=== PATIENT | female | born 1985 | race Caucasian/White ===

== ENCOUNTER 2018-08-24 21:07 | Emergency (ER) | payer SELFPAY ==
--- NOTE | 2018-08-24 21:18 | EDPHYS ---
Physician Documentation [facility] Name: Mi Duval Age: 33 yrs Sex: Female : 1985 Arrival Date: 08/24/2018 Time: 21:11 Bed 30 Private MD: Shaheen Mccallum ED Physician Guy Amaya HPI: 08/24 21:17 This 33 yrs old Female presents to ER via Unassigned with complaints of Burn, kb foot. 21:17 The patient presents with a burn as a result of hot water, while cooking, at home, is kb located on the dorsum of left foot. Onset: The symptoms/episode began/occurred 3 hour(s) ago. Burn type and severity: 2nd degree: of the dorsum of left foot. Associated signs and symptoms: none. The patient did not suffer any apparent inhalation injury, The patient had no loss of consciousness. The patient has not experienced similar symptoms in the past. The patient has not recently seen a physician. 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 Blistered immediately and one large blister popped. . 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 - Social history:: Smoking status: Patient uses tobacco products, smokes one-half pack cigarettes per day. - Ebola Screening: : Patient negative for fever greater than or equal to 101.5 degrees Fahrenheit, and additional compatible Ebola Virus Disease symptoms. ROS: 21:16 Constitutional: Negative for fever, chills, and weight loss, Cardiovascular: Negative kb for chest pain, palpitations, and edema, Respiratory: Negative for shortness of breath, cough, wheezing, and pleuritic chest pain, Abdomen/GI: Negative for abdominal pain, nausea, vomiting, diarrhea, and constipation, MS/Extremity: Negative for injury and deformity, Neuro: Negative for headache, weakness, numbness, tingling, and seizure. 21:16 Skin: Positive for burn. Exam: 21:15 Constitutional: This is a well developed, well nourished patient who is awake, alert, kb and in no acute distress. Head/Face: Normocephalic, atraumatic. Chest/axilla: Normal chest wall appearance and motion. Nontender with no deformity. No lesions are appreciated. Cardiovascular: Regular rate and rhythm with a normal S1 and S2. No gallops, murmurs, or rubs. Normal PMI, no JVD. No pulse deficits. Respiratory: Lungs have equal breath sounds bilaterally, clear to auscultation and percussion. No rales, rhonchi or wheezes noted. No increased work of breathing, no retractions or nasal flaring. Abdomen/GI: Soft, non-tender, with normal bowel sounds. No distension or tympany. No guarding or rebound. No evidence of tenderness throughout. Back: No spinal tenderness. No costovertebral tenderness. Full range of motion. MS/ Extremity: Pulses equal, no cyanosis. Neurovascular intact. Full, normal range of motion. Neuro: Awake and alert, GCS 15, oriented to person, place, time, and situation. Cranial nerves II-XII grossly intact. Motor strength 5/5 in all extremities. Sensory grossly intact. Cerebellar exam normal. Normal gait. 21:15 Skin: injury, burn(s), 2nd degree burn injury covers approximately 0.5% of the total body surface area, and is located on the dorsum of left foot. Vital Signs: 21:20 BP 105 / 51; Pulse 69; Resp 16 S; Temp 98.8(O); Pulse Ox 98% on R/A; Weight 81.65 kg jd3 (R); Height 5 ft. 7 in. (170.18 cm) (R); Pain 7/10; 21:42 BP 103 / 68; Pulse 62; Resp 17; Pulse Ox 99% ; rr5 21:20 Body Mass Index 28.19 (81.65 kg, 170.18 cm) jd3 MDM: 21:15 Patient medically screened. kb 21:15 Data reviewed: vital signs, nurses notes. Data interpreted: Pulse oximetry: on room air kb is 100 %. Interpretation: normal. Counseling: I had a detailed discussion with the patient and/or guardian regarding: the historical points, exam findings, and any diagnostic results supporting the discharge/admit diagnosis, the need for outpatient follow up, a family practitioner, to return to the emergency department if symptoms worsen or persist or if there are any questions or concerns that arise at home. 08/24 21:15 Order name: Wound Care; Complete Time: 21:42 kb Administered Medications: 21:41 Drug: Silvadene Cream 1 % 1 application {Note: left foot.} Route: Topical; Site: wound; rr5 Disposition: 08/25 07:46 Co-signature as Attending Physician, Guy Amaya MD I agree with the assessment and kalr plan of care. Disposition: 08/24/18 21:18 Discharged to Home. Impression: Burn of second degree of left foot. - Condition is Stable. - Discharge Instructions: Burn Care, [id number], Second-Degree Burn. - Medication Reconciliation Form, Thank You Letter, Antibiotic Education, Prescription Opioid Use form. - Follow up: Emergency Department; When: As needed; Reason: Worsening of condition. Follow up: Private Physician; When: 2 - 3 days; Reason: Recheck today's complaints, Continuance of care, Re-evaluation by your physician. Signatures: Keena Kim, JONG-C BAIT TIER-Guy Mosher MD MD cha Davies, Jonathon, RN RN jd3 Jeremi Li RN RN rr5 Corrections: (The following items were deleted from the chart) 08/24 21:50 21:18 08/24/2018 21:18 Discharged to Home. Impression: Burn of second degree of left rr5 foot. Condition is Stable. Forms are Medication Reconciliation Form, Thank You Letter, Antibiotic Education, Prescription Opioid Use. Follow up: Emergency Department; When: As needed; Reason: Worsening of condition. Follow up: Private Physician; When: 2 - 3 days; Reason: Recheck today's complaints, Continuance of care, Re-evaluation by your physician. kb
[2018-08-24] MEDS ORDERED: SILVER SULFADIAZINE 1% 25 GM TOP ONE (21:31)
--- NOTE | 2018-08-24 21:50 | ER ---
Nurse's Notes [facility] Name: Mi Duval Age: 33 yrs Sex: Female : 1985 Arrival Date: 08/24/2018 Time: 21:11 Bed 30 Private MD: Shaheen Mccallum Diagnosis: Burn of second degree of left foot Presentation: 08/24 21:19 Presenting complaint: Patient states: "I dropped a pot of boiling potatoes on my left jd3 foot.". Transition of care: patient was not received from another setting of care. Onset of symptoms was August 24, 2018. Risk Assessment: Do you want to hurt yourself or someone else? Patient reports no desire to harm self or others. Initial Sepsis Screen: Does the patient meet any 2 criteria? No. Patient's initial sepsis screen is negative. Does the patient have a suspected source of infection? No. Patient's initial sepsis screen is negative. Care prior to arrival: None. 21:19 Method Of Arrival: Ambulatory [facility] 21:19 Acuity: CAITLYN 4 jd3 Triage Assessment: 21:20 Injury Description: Burn was sustained less than 30 minutes ago. Patient sustained rr5 second-degree burn(s) to left foot. 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 - Social history:: Smoking status: Patient uses tobacco products, smokes one-half pack cigarettes per day. - Ebola Screening: : Patient negative for fever greater than or equal to 101.5 degrees Fahrenheit, and additional compatible Ebola Virus Disease symptoms. Screenin:48 Abuse screen: Denies threats or abuse. Denies injuries from another. Nutritional rr5 screening: No deficits noted. Tuberculosis screening: No symptoms or risk factors identified. Fall Risk None identified. Assessment: 21:20 General: Appears in no apparent distress. uncomfortable, Behavior is calm, cooperative, rr5 appropriate for age. Pain: Complains of pain in left foot Pain does not radiate. Pain currently is 7 out of 10 on a pain scale. Quality of pain is described as aching, Pain began suddenly, Is intermittent. 21:20 Neuro: Level of Consciousness is awake, alert, obeys commands, Oriented to person, rr5 place, time, situation. Cardiovascular: Capillary refill < 3 seconds Patient's skin is warm and dry. Respiratory: Airway is patent Respiratory effort is even, unlabored, Respiratory pattern is regular, symmetrical. GI: No signs and/or symptoms were reported involving the gastrointestinal system. : No signs and/or symptoms were reported regarding the genitourinary system. EENT: No signs and/or symptoms were reported regarding the EENT system. Derm: blisters at left foot. Musculoskeletal: No signs and/or symptoms reported regarding the musculoskeletal system. 21:46 Reassessment: Patient appears in no apparent distress at this time. Patient and/or rr5 family updated on plan of care and expected duration. Pain level reassessed. discharge instruction given and explained without complaints made. Patient states feeling better. Patient states symptoms have improved. Vital Signs: 21:20 BP 105 / 51; Pulse 69; Resp 16 S; Temp 98.8(O); Pulse Ox 98% on R/A; Weight 81.65 kg jd3 (R); Height 5 ft. 7 in. (170.18 cm) (R); Pain 7/10; 21:42 BP 103 / 68; Pulse 62; Resp 17; Pulse Ox 99% ; rr5 21:20 Body Mass Index 28.19 (81.65 kg, 170.18 cm) jd3 ED Course: 21:11 Patient arrived in ED. es 21:12 Shaheen Mccallum MD is Private Physician. es 21:12 Keena [facility] FNP-C [facility]. kb 21:12 Guy Amaya MD is Attending Physician. kb 21:20 Triage completed. jd3 21:20 Jeremi Li, BILLY is Primary Nurse. rr5 21:21 Arm band placed on. jd3 21:25 Patient has correct armband on for positive identification. Bed in low position. Call rr5 light in reach. Pulse ox on. NIBP on. 21:25 No provider procedures requiring assistance completed. Patient did not have IV access rr5 during this emergency room visit. 21:40 Dressings: 4X4s with silver sulfadiazine ointment. rr5 Administered Medications: 21:41 Drug: Silvadene Cream 1 % 1 application {Note: left foot.} Route: Topical; Site: wound; rr5 Outcome: 21:18 Discharge ordered by MD. mcgovern 21:49 Discharged to home ambulatory, with family. rr5 21:49 Condition: stable 21:49 Discharge instructions given to patient, family, Instructed on discharge instructions, follow up and referral plans. Demonstrated understanding of instructions, follow-up care. 21:50 Patient left the ED. rr5 Signatures: Keena Kim, CLINICAL NURSING INSTRUCTOR-C CLINICAL NURSING INSTRUCTOR-Laura Fritz Jonathon RN RN jd3 Jeremi Li, RN RN rr5
== END 2018-08-24 21:50 | disposition home or self-care (01) ==
LOC: ER 21:07
PROC: 2W2TX4Z Dressing of Left Foot using Bandage (ICD-10-PCS; principal; 2018-08-24)
DX: T25.222A Burn of second degree of left foot, initial encounter (principal); T31.0 Burns involving less than 10% of body surface; X12.XXXA Contact with other hot fluids, initial encounter; Y93.G3 Activity, cooking and baking; Y92.000 Kitchen of unspecified non-institutional (private) residence as the place of occurrence of the external cause; F17.210 Nicotine dependence, cigarettes, uncomplicated
CPT/HCPCS: 99283

== ENCOUNTER 2020-10-20 15:11 | Emergency (ER) | payer OTHER ==
--- OUTSIDE RECORDS SUMMARY | 2020-10-20 15:14 | XMS REPORT | Continuity of Care Document ---
:1985 Author Organization [facility] t Address [address] [place] [address] Care Team Providers Name Role Phone Ana MICHAUD Attending Clinician Problems This patient has no known problems. Allergies, Adverse Reactions, Alerts Allergy Allergy Status Severity Reaction(s) Onset Inactive Treating Comm ents Source Name Type Date Date Clinician Sotalol Adverse Active hives [facility] Medications Ordered Filled Start Stop Current Ordering Indication Dosage Frequency Signature Comments Components Source Medication Medication Date Date Medication? Clinician (SIG) Name Name Dexilant Dexilant Yes Tutu [address] [facility] Zofran Zofran Yes [facility] 1 tablet [facility] Dicyclomine Dicyclomine Yes [facility] [address] [facility] HCl HCl [facility] Procedures This patient has no known procedures. Encounters Start End Encounter Admission Attending Care Care Encounter Source Date/Time Date/Time Type Type Clinicians Facility Department ID 2020-10-12 2020-10-12 Office SHAWN Perez [id number] 15:07:46 15:37:46 Visit [facility] [id number] [id number] [place] AT [id number] DANIEL GONZALEZ 2020-08-02 2020-08-02 Outpatient [facility] [id number] [facility] 2020-07-03 2020-07-03 Outpatient [facility] [id number] [facility] 2020-06-20 2020-06-20 Outpatient [facility] [id number] [facility] 2020-06-14 2020-06-14 [facility] [id number] 2020-05-03 2020-05-03 [facility] [id number] [facility] 11:20[facility] 11[facility]20[facility]00 [facility] 2020-05-03 2020-05-03 [facility] [id number] [facility] 11:00[facility]00 11:00:00 [facility] Results This patient has no known results.
--- NOTE | 2020-10-20 16:49 | ER ---
Nurse's Notes [facility] Name: Mi Duval Age: 35 yrs Sex: Female : 1985 Arrival Date: 10/20/2020 Time: 15:12 Bed 15 Private MD: Tutu Rosas Diagnosis: Low back pain Presentation: 10/20 15:34 Chief complaint: Patient states: today she bent over and her back popped and then she iw couldn't stand back up, called her doctor and they prescribed medication but it's not helping. Coronavirus screen: At this time, the client does not indicate any symptoms associated with coronavirus-19. Ebola Screen: Patient negative for fever greater than or equal to 101.5 degrees Fahrenheit, and additional compatible Ebola Virus Disease symptoms Patient denies exposure to infectious person. Patient denies travel to an Ebola-affected area in the 21 days before illness onset. No symptoms or risks identified at this time. Initial Sepsis Screen: Does the patient meet any 2 criteria? No. Patient's initial sepsis screen is negative. Does the patient have a suspected source of infection? No. Patient's initial sepsis screen is negative. Risk Assessment: Do you want to hurt yourself or someone else? Patient reports no desire to harm self or others. Onset of symptoms was October 20, 2020. 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 - Social history:: Smoking status: Patient reports the use of cigarette tobacco products, smokes one-half pack cigarettes per day. Screenin:50 Abuse screen: Denies threats or abuse. Denies injuries from another. Nutritional zb screening: No deficits noted. Tuberculosis screening: No symptoms or risk factors identified. Fall Risk None identified. Assessment: 16:50 General: Appears in no apparent distress. uncomfortable, Behavior is cooperative, zb appropriate for age, agitated. Pain: Complains of pain in left low back Pain does not radiate. Pain currently is 10 out of 10 on a pain scale. Quality of pain is described as throbbing, Pain began today Alleviated by rest, Aggravated by repositioning. Neuro: Level of Consciousness is awake, alert, obeys commands, Oriented to person, place, time, situation. Cardiovascular: No deficits noted. Respiratory: No deficits noted. GI: No deficits noted. : No deficits noted. EENT: No deficits noted. Derm: Skin is intact, is healthy with good turgor, Skin is dry, Skin is normal, Skin temperature is warm. Musculoskeletal: Range of motion: intact in all extremities, Reports pain in left low back since today . 16:56 Reassessment: d/c pending completion of IM injection wait time. zb 17:16 Reassessment: d/c instructions given. wheel out with family. zb Vital Signs: 15:34 BP 104 / 62; Pulse 75; Resp 16; Temp 98.4; Pulse Ox 100% ; Weight 86.18 kg; Height 5 iw ft. 7 in. (170.18 cm); Pain 10/10; 17:16 BP 105 / 68; Pulse 78; Resp 16; Pulse Ox 99% on R/A; zb 15:34 Body Mass Index 29.76 (86.18 kg, 170.18 cm) iw ED Course: 15:12 Patient arrived in ED. am2 15:12 Tutu Rosas DO is Private Physician. am2 15:36 Triage completed. iw 15:36 Arm band placed on. iw 15:52 Keena Kim FNP-C [facility]. kb 15:52 Guy Amaya MD is Attending Physician. kb 15:59 Antonella Kurtz RN is Primary Nurse. zb 16:58 Patient has correct armband on for positive identification. Pulse ox on. NIBP on. Door zb closed. Noise minimized. 17:16 No provider procedures requiring assistance completed. Patient did not have IV access zb during this emergency room visit. Administered Medications: 16:55 Drug: [place]il 10 mg-325 mg 1 tabs Route: PO; zb 17:17 Follow up: Response: No adverse reaction; Marked relief of symptoms; RASS: Alert and zb Calm (0) 16:56 Drug: TORadol 60 mg Route: IM; Site: right gluteus; zb 17:17 Follow up: Response: No adverse reaction; RASS: Alert and Calm (0) zb Outcome: 16:48 Discharge ordered by . shaniqua 17:16 Discharged to home via wheelchair, with family. zb 17:16 Condition: stable 17:16 Discharge instructions given to patient, Instructed on discharge instructions, follow up and referral plans. medication usage, Demonstrated understanding of instructions, follow-up care, medications, Prescriptions given X 1. 17:17 Patient left the ED. zb Signatures: Keena Kim, UTILITY GELATIN MAKER-C UTILITY GELATIN MAKER-Ckb Claire Iyer, RN RN iw Peyton Mcnair Zipporah RN RN zb Corrections: (The following items were deleted from the chart) 15:37 15:34 Chief complaint: Patient states: bent over and her back popped and then she iw couldn't stand back up, called her doctor and they prescribed medication but she couldn't stand the pain iw
--- NOTE | 2020-10-20 16:49 | EDPHYS ---
Physician Documentation [facility] Name: Mi Duval Age: 35 yrs Sex: Female : 1985 Arrival Date: 10/20/2020 Time: 15:12 Bed 15 Private MD: [facility] ED Physician Guy Amaya HPI: 10/20 23:42 This 35 yrs old Female presents to ER via Wheelchair with complaints of Back kb Pain, Can't walk - or stand up. 23:42 The patient presents with pain and decreased range of motion, and spasm, and kb tenderness. The symptoms are located in the low back. Onset: The symptoms/episode began/occurred today. The pain does not radiate. Associated signs and symptoms: The patient has no apparent associated signs or symptoms, Pertinent positives: Pertinent negatives:. The problem was sustained when bending over. Modifying factors: The patient symptoms are alleviated by nothing, the patient symptoms are aggravated by any movement. Severity of symptoms: At their worst the symptoms were moderate, in the emergency department the symptoms are unchanged. The patient has not experienced similar symptoms in the past. The patient has not recently seen a physician. Pt reports she used to have chronic back pain until she lost approx 100 pounds. States she hasn't had back pain in a long time, but now has low back pain after bending over. Denies injury or trauma. 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 - Social history:: Smoking status: Patient reports the use of cigarette tobacco products, smokes one-half pack cigarettes per day. ROS: 23:41 Constitutional: Negative for fever, chills, and weight loss, Cardiovascular: Negative kb for chest pain, palpitations, and edema, Respiratory: Negative for shortness of breath, cough, wheezing, and pleuritic chest pain, Abdomen/GI: Negative for abdominal pain, nausea, vomiting, diarrhea, and constipation, : Negative for injury, bleeding, discharge, and swelling, MS/Extremity: Negative for injury and deformity, Skin: Negative for injury, rash, and discoloration, Neuro: Negative for headache, weakness, numbness, tingling, and seizure. 23:41 Back: Positive for pain at rest, pain with movement, of the lumbar area. Exam: 23:41 Constitutional: This is a well developed, well nourished patient who is awake, alert, kb and in no acute distress. Head/Face: Normocephalic, atraumatic. Chest/axilla: Normal chest wall appearance and motion. Cardiovascular: Regular rate and rhythm with a normal S1 and S2. No gallops, murmurs, or rubs. No pulse deficits. Respiratory: Lungs have equal breath sounds bilaterally, clear to auscultation. No rales, rhonchi or wheezes noted. No increased work of breathing, no retractions or nasal flaring. Abdomen/GI: Soft, non-tender, with normal bowel sounds. No distension. No guarding or rebound. No evidence of tenderness throughout. Skin: Warm, dry with normal turgor. Normal color with no rashes, no lesions, and no evidence of cellulitis. MS/ Extremity: Pulses equal, no cyanosis. Neurovascular intact. Full, normal range of motion. Neuro: Awake and alert, GCS 15, oriented to person, place, time, and situation. Cranial nerves II-XII grossly intact. Moves all extremities. Sensory grossly intact. Cerebellar exam normal. Normal gait. 23:41 Back: pain, that is moderate, of the lumbar area, ROM is painful, normal spinal alignment noted. 10/21 00:18 Neuro: Orientation: is normal, Mentation: is normal, able to follow commands, Memory: kb is normal, Motor: is normal, Sensation: is normal, Gait: is steady. Vital Signs: 03 15:34 BP 104 / 62; Pulse 75; Resp 16; Temp 98.4; Pulse Ox 100% ; Weight 86.18 kg; Height 5 iw ft. 7 in. (170.18 cm); Pain 10/10; 17:16 BP 105 / 68; Pulse 78; Resp 16; Pulse Ox 99% on R/A; zb 15:34 Body Mass Index 29.76 (86.18 kg, 170.18 cm) iw MDM: 15:52 Patient medically screened. kb 23:41 Data reviewed: vital signs, nurses notes. Data interpreted: Pulse oximetry: on room air kb is 99 %. Interpretation: normal. Counseling: I had a detailed discussion with the patient and/or guardian regarding: the historical points, exam findings, and any diagnostic results supporting the discharge/admit diagnosis, the need for outpatient follow up, a family practitioner, to return to the emergency department if symptoms worsen or persist or if there are any questions or concerns that arise at home. Administered Medications: 16:55 Drug: [place] 10 mg-325 mg 1 tabs Route: PO; zb 17:17 Follow up: Response: No adverse reaction; Marked relief of symptoms; RASS: Alert and zb Calm (0) 16:56 Drug: TORadol 60 mg Route: IM; Site: right gluteus; zb 17:17 Follow up: Response: No adverse reaction; RASS: Alert and Calm (0) zb Disposition: 10/21 09:09 Co-signature as Attending Physician, Guy Amaya MD I agree with the assessment and karl plan of care. Disposition: 10/20/20 16:48 Discharged to Home. Impression: Low back pain. - Condition is Stable. - Discharge Instructions: Back Pain, Adult, [id number], Back Exercises, [id number]. - Prescriptions for Diclofenac Sodium 75 mg Oral Tablet, Delayed Release (E.C.) - take 1 tablet by ORAL route 2 times per day As needed; 30 tablet. - Medication Reconciliation Form, Thank You Letter, Antibiotic Education, Prescription Opioid Use form. - Follow up: Emergency Department; When: As needed; Reason: Worsening of condition. Follow up: Private Physician; When: 2 - 3 days; Reason: Recheck today's complaints, Continuance of care, Re-evaluation by your physician. Signatures: Keena Kim, EDUCATION RN-C EDUCATION RN-Guy Mosher MD MD cha Williams, Irene, Antonella Mello RN, RN RN zb Corrections: (The following items were deleted from the chart) 10/20 17:17 16:48 10/20/2020 16:48 Discharged to Home. Impression: Low back pain. Condition is zb Stable. Forms are Medication Reconciliation Form, Thank You Letter, Antibiotic Education, Prescription Opioid Use. Follow up: Emergency Department; When: As needed; Reason: Worsening of condition. Follow up: Private Physician; When: 2 - 3 days; Reason: Recheck today's complaints, Continuance of care, Re-evaluation by your physician. kb
[2020-10-20] MEDS ORDERED: HYDROCODONE/APAP 10/325 TAB ONE (17:05)
[2020-10-20] MEDS ORDERED: KETOROLAC 30 MG/ML INJ ONE (17:06)
[2020-10-20 17:23] VITALS: TEMP 98.4
[2020-10-20 17:24] VITALS: BP 105/68; O2SAT 99
== END 2020-10-20 17:17 | disposition home or self-care (01) ==
LOC: ER 15:11
DX: M54.5 Low back pain (principal); F17.210 Nicotine dependence, cigarettes, uncomplicated; Z88.4 Allergy status to anesthetic agent
CPT/HCPCS: 96372; 99283

== ENCOUNTER 2021-06-15 21:09 | Emergency (ER) | payer OTHER ==
--- NOTE | 2021-06-15 21:54 | RAD REPORT ---
EXAM DESCRIPTION: RAD - Shoulder Left 2 View - 06/15/2021 9:42 pm CLINICAL HISTORY: Left shoulder pain status post fall FINDINGS: Anterior humeral dislocation. No fracture is seen
[2021-06-15] MEDS ORDERED: HYDROMORPHONE HCL 1 MG/ML INJ ONE (22:12)
[2021-06-15] MEDS ORDERED: ONDANSETRON 4 MG/2 ML VIAL ONE (22:12)
--- NOTE | 2021-06-15 22:19 | ER ---
Nurse's Notes [facility] Name: Mi Duval Age: 35 yrs Sex: Female : 1985 Arrival Date: 06/15/2021 Time: 21:10 Bed 2 Private MD: Diagnosis: Other dislocation of left shoulder joint Presentation: 06/15 21:10 Chief complaint: EMS states: they were toned out for report of pt haven fallen injuring bb left shoulder. Coronavirus screen: At this time, the client does not indicate any symptoms associated with coronavirus-19. Ebola Screen: No symptoms or risks identified at this time. Initial Sepsis Screen: Does the patient meet any 2 criteria? No. Patient's initial sepsis screen is negative. Does the patient have a suspected source of infection? No. Patient's initial sepsis screen is negative. Risk Assessment: Do you want to hurt yourself or someone else? Patient reports no desire to harm self or others. Onset of symptoms was June 15, 2021. 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 - Social history:: Smoking status: unknown. Screenin:06 Abuse screen: Denies threats or abuse. Denies injuries from another. Nutritional lp1 screening: No deficits noted. Tuberculosis screening: No symptoms or risk factors identified. Fall Risk None identified. Assessment: 21:15 General: Appears distressed, Behavior is anxious, crying. Pain: Complains of pain in lp1 left shoulder Pain currently is 10 out of 10 on a pain scale. Quality of pain is described as sharp, shooting, Pain began 30 min ago. Noted to be agitated, crying, moaning, restless. Neuro: Level of Consciousness is awake, alert, obeys commands. Cardiovascular: Patient's skin is warm and dry. Respiratory: Respiratory effort is even, unlabored. GI: No signs and/or symptoms were reported involving the gastrointestinal system. : No signs and/or symptoms were reported regarding the genitourinary system. EENT: No signs and/or symptoms were reported regarding the EENT system. Derm: Skin is pink, warm \T\ dry. Musculoskeletal: Bony deformity noted of left shoulder. 22:06 Reassessment: Patient A/Ox4 after conscious sedation Patient states feeling better. lp1 Patient states symptoms have improved. General: Appears in no apparent distress. Behavior is calm, cooperative. Pain: Denies pain. 22:32 Reassessment: Patient appears in no apparent distress at this time. Patient is alert, lp1 oriented x 3, equal unlabored respirations, skin warm/dry/pink. Neuro: Level of Consciousness is awake, alert, obeys commands, Oriented to person, place, time, situation, Gait is steady. Vital Signs: 21:10 BP 120 / 97; Pulse 55; Resp 22 S; Temp 98(O); Pulse Ox 100% on R/A; Weight 88.45 kg bb (R); Height 5 ft. 7 in. (170.18 cm) (R); Pain 10/10; 22:09 BP 102 / 64; Pulse 61; Resp 19; Pulse Ox 99% on R/A; lp1 21:10 Body Mass Index 30.54 (88.45 kg, 170.18 cm) bb ED Course: 21:10 Patient arrived in ED. mw2 21:10 Abelardo Rosas MD is Attending Physician. sp3 21:15 Inserted saline lock: 20 gauge in right forearm, using aseptic technique. bb 21:15 Arm band placed on Patient placed in an exam room, on a stretcher, on pulse oximetry. bb 21:42 Shoulder Left (2 View) XRAY In Process Unspecified. EDMS 21:47 Triage completed. bb 21:50 Patient has correct armband on for positive identification. Placed in gown. Bed in low lp1 position. 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 Pulse ox on. NIBP on. 21:52 Assist provider with reduction of left shoulder using manipulation, Set up for lp1 procedure. Performed by Abelardo Rosas MD Immobilized with sling. 22:04 Shoulder 1 View In Process Unspecified. EDMS 22:05 Sling applied to left arm. lp1 22:06 Ilda Snyder RN is Primary Nurse. lp1 22:18 Micah Menezes MD is Referral Physician. sp3 22:26 IV discontinued, No redness/swelling at site. Pressure dressing applied. lp1 Administered Medications: 21:17 Drug: Dilaudid (HYDROmorphone) 1 mg {Note: RASS 0.} Route: IVP; Site: right forearm; bb 22:08 Follow up: Response: No adverse reaction; Pain is decreased lp1 21:17 Drug: Zofran (Ondansetron) 4 mg Route: IVP; Site: right forearm; bb 22:08 Follow up: Response: No adverse reaction lp1 21:52 Drug: Etomidate 20 mg {Note: verbal order per Dr. Rosas.} Route: IVP; Site: right lp1 forearm; 22:08 Follow up: Response: No adverse reaction lp1 21:52 Drug: NS 0.9% 1000 ml Route: IV; Rate: 1000 ml; Site: right forearm; lp1 Outcome: 22:18 Discharge ordered by . sp3 22:32 Discharged to home via wheelchair, with friend. lp1 22:32 Condition: good 22:32 Discharge instructions given to patient, Instructed on discharge instructions, follow up and referral plans. Demonstrated understanding of instructions, follow-up care, splint care, Prescriptions given X 1. 22:33 Patient left the ED. lp1 Signatures: Dispatcher [employer] EDMS Rupali Stone RN RN bb Ilda Snyder RN RN lp1 Blanco Coley mw2 Abelardo Rosas MD MD sp3
--- NOTE | 2021-06-15 22:19 | EDPHYS ---
Physician Documentation [facility] Name: Mi Duval Age: 35 yrs Sex: Female : 1985 Arrival Date: 06/15/2021 Time: 21:10 Bed 2 Private MD: ED Physician Abelardo Rosas HPI: 06/15 22:10 This 35 yrs old Female presents to ER via EMS with complaints of Left sp3 shoulder dislocation. 22:10 35-year-old female with no significant past medical history presents with left shoulder sp3 pain secondary to ground-level mechanical fall after slipping on grass while chasing her children at a [employer]. Patient's last meal was approximately 1 and half hours prior to arrival. Patient arrives via EMS for inability to move left shoulder and self diagnosis of dislocation in the field. Patient has no numbness or tingling to the fingers can move her elbow and hands freely without any difficulty. Patient has no chest pain, back pain, abdominal pain, any other significant findings. There is no secondary injury patient denies hitting head or LOC.. 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 - Social history:: Smoking status: unknown. ROS: 22:11 Constitutional: Negative for fever, chills, and weight loss, ENT: Negative for injury, sp3 pain, and discharge, Neck: Negative for injury, pain, and swelling, Cardiovascular: Negative for chest pain, palpitations, and edema, Respiratory: Negative for shortness of breath, cough, wheezing, and pleuritic chest pain, Abdomen/GI: Negative for abdominal pain, nausea, vomiting, diarrhea, and constipation, Back: Negative for injury and pain, Skin: Negative for injury, rash, and discoloration, Neuro: Negative for headache, weakness, numbness, tingling, and seizure, Psych: Negative for depression, anxiety, suicide ideation, homicidal ideation, and hallucinations, Allergy/Immunology: Negative for hives, rash, and allergies, Hematologic/Lymphatic: Negative for swollen nodes, abnormal bleeding, and unusual bruising. Exam: 22:13 Constitutional: This is a well developed, well nourished patient who is awake, alert, sp3 and in no acute distress. Head/Face: Normocephalic, atraumatic. Eyes: Pupils equal round and reactive to light, extra-ocular motions intact. Lids and lashes normal. Conjunctiva and sclera are non-icteric and not injected. Cornea within normal limits. Periorbital areas with no swelling, redness, or edema. ENT: Nares patent. No nasal discharge, no septal abnormalities noted. External auditory canals are clear. Oropharynx with no redness, swelling, or masses, exudates, or evidence of obstruction, uvula midline. Mucous membranes moist. Neck: Trachea midline, no thyromegaly or masses palpated, and no cervical lymphadenopathy. Supple, full range of motion without nuchal rigidity, or vertebral point tenderness. No Meningismus. Chest/axilla: Normal chest wall appearance and motion. Nontender with no deformity. No lesions are appreciated. Cardiovascular: Regular rate and rhythm with a normal S1 and S2. No gallops, murmurs, or rubs. Normal PMI, no JVD. No pulse deficits. Respiratory: Lungs have equal breath sounds bilaterally, clear to auscultation and percussion. No rales, rhonchi or wheezes noted. No increased work of breathing, no retractions or nasal flaring. Back: No spinal tenderness. No costovertebral tenderness. Full range of motion. Skin: Warm, dry with normal turgor. Normal color with no rashes, no lesions, and no evidence of cellulitis. Neuro: Awake and alert, GCS 15, oriented to person, place, time, and situation. Cranial nerves II-XII grossly intact. Motor strength 5/5 in all extremities. Sensory grossly intact. Cerebellar exam normal. Normal gait. 22:13 Musculoskeletal/extremity: Left shoulder abducted with step-off consistent with shoulder dislocation. Neurovascular exam distally is normal. No crepitus felt on mild movement.. Vital Signs: 21:10 BP 120 / 97; Pulse 55; Resp 22 S; Temp 98(O); Pulse Ox 100% on R/A; Weight 88.45 kg bb (R); Height 5 ft. 7 in. (170.18 cm) (R); Pain 10/10; 22:09 BP 102 / 64; Pulse 61; Resp 19; Pulse Ox 99% on R/A; lp1 21:10 Body Mass Index 30.54 (88.45 kg, 170.18 cm) bb MDM: 21:12 Patient medically screened. sp3 22:15 Data reviewed: vital signs, nurses notes, EMS record. ED course: Initial x-ray sp3 demonstrates dislocation anteriorly without evidence of fracture. Patient received procedural sedation with a total of 20 mg of etomidate requirement for proper procedural sedation. Initially 4 mg was given followed by an IV issue which was quickly resolved an additional 12 mg was given. Patient ultimately required 4 more milligrams for full sedation during which she had normal vital signs and normal pulse oxygenation while on 2 L nasal cannula. Lateral rotation plus abduction was performed with proper relocation felt during procedure. Repeat x-ray demonstrates proper relocation and still no evidence of fracture. Patient feels much better and her pain is further relieved. Patient recovered from sedation without any difficulty.. 06/15 21:11 Order name: Shoulder Left (2 View) XRAY sp3 06/15 22:02 Order name: Shoulder 1 View EDMS 06/15 21:11 Order name: NPO; Complete Time: 21:45 sp3 06/15 21:11 Order name: IV Saline Lock; Complete Time: 21:45 sp3 Administered Medications: 21:17 Drug: Dilaudid (HYDROmorphone) 1 mg {Note: RASS 0.} Route: IVP; Site: right forearm; bb 22:08 Follow up: Response: No adverse reaction; Pain is decreased lp1 21:17 Drug: Zofran (Ondansetron) 4 mg Route: IVP; Site: right forearm; bb 22:08 Follow up: Response: No adverse reaction lp1 21:52 Drug: Etomidate 20 mg {Note: verbal order per Dr. Rosas.} Route: IVP; Site: right lp1 forearm; 22:08 Follow up: Response: No adverse reaction lp1 21:52 Drug: NS 0.9% 1000 ml Route: IV; Rate: 1000 ml; Site: right forearm; lp1 Disposition Summary: 06/15/21 22:18 Discharge Ordered Location: Home sp3 Condition: Stable sp3 Diagnosis - Other dislocation of left shoulder joint sp3 Followup: sp3 - With: Micah Menezes MD - When: As needed - Reason: Continuance of care, Re-evaluation by your physician Discharge Instructions: - Discharge Summary Sheet sp3 - Shoulder Dislocation sp3 - Moderate Conscious Sedation, Adult sp3 Forms: - Medication Reconciliation Form sp3 - Thank You Letter sp3 - Antibiotic Education sp3 - Prescription Opioid Use sp3 Prescriptions: - Diclofenac Sodium 75 mg Oral Tablet Sustained Release - take 1 tablet by ORAL route 2 times per day; 30 tablet; Refills: 0, Product sp3 Selection Permitted Signatures: Dispatcher [employer] EDMS Rupali Stone, BILLY RN bb Ilda Snyder RN RN lp1 Abelardo Rosas MD MD sp3 Corrections: (The following items were deleted from the chart) 22:02 21:57 Shoulder Left 2 View+[email or web address] ordered. EDMS EDMS
[2021-06-15 22:40] VITALS: TEMP 98
[2021-06-15 22:41] VITALS: BP 102/64; O2SAT 99
[2021-06-15] MEDS ORDERED: NA CHLORIDE 0.9% 1,000 ML ONE (22:42)
[2021-06-15] MEDS ORDERED: ETOMIDATE 20 MG/10 ML VIAL IV ONE (22:42)
--- NOTE | 2021-06-16 08:25 | RAD REPORT ---
EXAM DESCRIPTION: RAD - Shoulder 1 View - 06/15/2021 10:04 pm FINDINGS: Single AP projection was obtained labeled post reduction. Left humeral head has been reduced to anatomic position. No other significant findings.
== END 2021-06-15 22:33 | disposition home or self-care (01) ==
LOC: ER 21:09
PROC: 0RSKXZZ Reposition Left Shoulder Joint, External Approach (ICD-10-PCS; principal; 2021-06-15)
DX: S43.085A Other dislocation of left shoulder joint, initial encounter (principal); W01.0XXA Fall on same level from slipping, tripping and stumbling without subsequent striking against object, initial encounter; Y93.02 Activity, running; Y92.89 Other specified places as the place of occurrence of the external cause; Z88.5 Allergy status to narcotic agent
CPT/HCPCS: 73020; 73030; 96375; 96374; 99285; 23655; J1170; J7030; J2405